=== PATIENT | female | born 1985 | race Caucasian/White ===

== ENCOUNTER 2019-11-24 06:43 | Inpatient (IN) | payer BC ==
[2019-11-24] MEDS ORDERED: Butorphanol Tartrate 1 MG/ML VIAL SLOW IVP PRN (07:31)
[2019-11-24] MEDS ORDERED: hydrALAZINE 20 MG/ML VIAL SLOW IVP PRN ×2 (07:31→12:39)
[2019-11-24] MEDS ORDERED: Acetaminophen 500 MG TAB PO PRN (07:31)
[2019-11-24] MEDS ORDERED: Misoprostol 200 MCG TAB PR PRN (07:31)
[2019-11-24] MEDS ORDERED: Ondansetron PF 4 MG/2 ML Vial IVP PRN ×2 (07:31→11:56)
[2019-11-24] MEDS ORDERED: NS w/ Oxytocin 10 units 500 ML IV SCH (07:31)
[2019-11-24] MEDS ORDERED: Ibuprofen 800 MG TAB PO PRN (07:31)
[2019-11-24] MEDS ORDERED: Promethazine HCl 25 MG/ML VIAL IM PRN ×2 (07:31→11:56)
[2019-11-24] MEDS ORDERED: Lidocaine 1% (PF) 30 ML VIAL SC PRN (07:31)
[2019-11-24] MEDS ORDERED: NS / Oxytocin 40 units/1000ml 1,000 ML IV PRN (07:31)
[2019-11-24] MEDS ORDERED: Carboprost 250 MCG/ML AMP IM PRN (07:31)
[2019-11-24 07:42] VITALS: BMI 34.3
[2019-11-24 07:58] LABS: Hemoglobin 13.3 g/dL (12.0-16.0); Mean Corpuscular HGB CONC 34.9 g/dL (32.0-36.0); Mean Corpuscular Hemoglobin 32.5 pg (27.0-31.0); Mean Corpuscular Volume 93.2 fL (78.0-98.0); Mean Platelet Volume 7.7 fL (7.4-10.4); Platelet Count 192 thou/uL (130-400); RBC Distribution Width 11.6 % (11.5-14.5); Red Blood Cell (RBC) Count 4.11 mill/uL (4.20-5.40); White Blood Cell (WBC) Count 7.7 thou/uL (4.8-10.8)
[2019-11-24 08:37] LABS: Syphilis Antibody Nonreactive (Nonreactive); Syphilis Antibody Index 0.05 S/CO (<1.00 Non-Reactive)
[2019-11-24 08:38] LABS: HBSAg Index 0.23 S/CO (0-0.99); Hep B Surf Ag Non-Reactive S/CO (NonReactive)
--- NOTE | 2019-11-24 09:54 | PDOC.EVN ---
Event Note - Event Note Event Note: [facility] Asked to perform AROM. EGA: 40 weeks 4 days SAB2 Asked to perform AROM per Dr Dior. last exam was -/-2 at 0800, pitcoin in use AROM reviewed with patient. IUPC placed
--- NOTE | 2019-11-24 10:09 | PDOC.EVN ---
Event Note - Event Note Event Note: Thin mec noted at AROM. I reviewed this with the pateint and partner. Likely a function of EGA (Late term). Discussed protocol of having NICU in room at . Sending Placenta and gas may be considered by Dr Dior at delivery
[2019-11-24] MEDS ORDERED: Fentanyl 4 mcg/Bup 0.1% Cadd 100 ML ONE (10:21)
[2019-11-24] MEDS ORDERED: Fentanyl 100 MCG/2 ML VIAL ONE (11:36)
[2019-11-24] MEDS ORDERED: NS / Oxytocin 40 units/1000ml 1,000 ML ONE ×2 (11:48→14:43)
[2019-11-24] MEDS ORDERED: Lidocaine 1% (PF) 30 ML VIAL ONE (11:48)
[2019-11-24] MEDS ORDERED: diphenhydrAMINE 50 MG/ML VIAL IVP PRN (11:56)
[2019-11-24] MEDS ORDERED: Lactated Ringer's 500 ML IV PRN (11:56)
[2019-11-24] MEDS ORDERED: ePHEDrine/0.9% NaCl/PF SYRINGE 50 mg/10 ml SLOW IVP PRN (11:56)
[2019-11-24] MEDS ORDERED: Acetaminophen 325 MG TAB PO PRN (11:56)
[2019-11-24] MEDS ORDERED: Naloxone HCl 0.4 mg/ml Vial IVP PRN ×2 (11:56)
[2019-11-24] MEDS ORDERED: Fentanyl 4 mcg/Bupivacaine 0.1% Cassette 100 ML EPIDURAL SCH (12:00)
[2019-11-24] MEDS ORDERED: Communication Order-Pharmacy FS PRN (12:00)
--- NOTE | 2019-11-24 12:37 | PDOC.OPDEL ---
OB Operative/Delivery Note Delivery Dr/Surgeon: Ovi Pre-Delivery Diagnosis: elective induction Procedure/Post Delivery Dx: spontaneous vaginal delivery Weeks gestation: 40 Anesthesia: epidural - Findings A Sex: female - 1 min: 8 - 5 min: 9 - Additional Findings/Plan Placenta delivered: spontaneous Repaired Obstetrical Laceration: 2nd degree Estimated blood loss: 110 ml qbl Post delivery plan: routine recovery
--- NOTE | 2019-11-24 12:38 | PDOC.LDHP ---
Labor and Delivery H&P Chief complaint: scheduled induction Current gestational age (weeks): 40 Dating criteria: last menstrual period Grav: 4 Para: 1 Current complications: none Abnormal US findings: No Current medications: pre-indiana vitamins Previous surgical history: none Allergies/Adverse Reactions: Allergies Allergy/AdvReac Type Severity Reaction Status Date / Time No Known Allergies Allergy Unverified 11/24/19 07:33 Social history: none - Vaginal Exam cm dilated: 4 Effacement: 50% Station: -1 - OB Labs Blood type: O RH: positive Antibody Screen: negative HIV: negative RPR: negative HEPSAg: negative 1 hour GCT: positive 3 hour GTT: negative GBS: negative - Assessment L&D Assessment: elective induction at term - Plan Plan: admit to L&D, labor augmentation if indicated, anesthesia consult for pain management
[2019-11-24] MEDS ORDERED: Lanolin Ointment 7 GM TUBE TOP PRN (12:39)
[2019-11-24] MEDS ORDERED: Preparation H Ointment 28 GM TUBE PR PRN (12:39)
[2019-11-24] MEDS ORDERED: diphenhydrAMINE 25 MG CAP PO PRN (12:39)
[2019-11-24] MEDS ORDERED: Bisacodyl 10 MG SUPP PR PRN (12:39)
[2019-11-24] MEDS ORDERED: Benzocaine-Menthol 82.5 ML CAN TOP PRN (12:39)
[2019-11-24] MEDS ORDERED: Milk Of Magnesia 30 ML UDCUP PO PRN (12:39)
[2019-11-24] MEDS ORDERED: NS / Oxytocin 40 units/1000ml 1,000 ML IV SCH (12:45)
[2019-11-24] MEDS ORDERED: Bupivacaine/Epinephrine 0.25% 30 ML VIAL ONE (13:57)
[2019-11-24] MEDS ORDERED: Misoprostol 200 MCG TAB ONE ×2 (14:15→14:16)
[2019-11-24] MEDS ORDERED: Carboprost 250 MCG/ML AMP ONE (14:32)
[2019-11-24] MEDS ORDERED: Diphenoxylate HCl/Atropine Tablet PO SCH (14:45)
[2019-11-24] MEDS: Ibuprofen 800 MG TAB PO SCH ×2 (17:38→22:44)
[2019-11-24] MEDS: Ferrous Sulfate 325 MG TAB PO SCH (17:39)
[2019-11-24] MEDS: traMADol HCl 50 MG TAB PO PRN (17:40)
[2019-11-24] MEDS: Docusate Calcium (SURFAK) 240 MG CAP PO SCH (22:44)
[2019-11-25] MEDS: traMADol HCl 50 MG TAB PO PRN (04:17)
[2019-11-25] MEDS: Ibuprofen 800 MG TAB PO SCH ×2 (04:17→13:53)
--- NOTE | 2019-11-25 07:46 | PDOC.PP ---
Post Progress Note Post Day #: 1 PO intake tolerated: yes Flatus: yes Ambulation: yes Vital Signs (12 hours) Temp Pulse Resp BP BP Pulse Ox 11/25/19 04:06 98.3 F 78 17 121/72 11/24/19 21:15 98.0 F 82 17 124/65 11/24/19 20:00 98.0 F 84 18 151/104 H 100 Weight Weight 200 lb Result Diagrams: 11/24/19 07:50 Additional Labs: Post Labs Blood Type O POSITIVE 11/24/19 07:59 Hep Bs Antigen Non-Reactive S/CO (NonReactive) 11/24/19 07:50 - Assessment/Plan Post day 1...Doing well...D/c home today ..Has f/u in 6 weeks.
[2019-11-25] MEDS: Ferrous Sulfate 325 MG TAB PO SCH ×2 (08:29→14:14)
[2019-11-25] MEDS: Docusate Calcium (SURFAK) 240 MG CAP PO SCH (08:34)
[2019-11-25] MEDS ORDERED: Prenatal Vitamin 1 TAB PO SCH (09:00)
[2019-11-25 11:52] VITALS: BP 125/78; TEMP 97.8
[2019-11-25] MEDS ORDERED: Adacel (T-DAP) 0.5 ML SYRINGE IM ONE (12:39)
== END 2019-11-25 17:50 | disposition home or self-care (01) | DRG 807 ==
LOC: L&D/OP 06:43 → L&D 06:44 → 3SW 16:47
PROVIDERS: ADMIT Obstetrics & Gynecology; ATTEND Obstetrics & Gynecology
PROC: 10E0XZZ Delivery of Products of Conception, External Approach (ICD-10-PCS; principal; 2019-11-24)
PROC: 0KQM0ZZ Repair Perineum Muscle, Open Approach (ICD-10-PCS; 2019-11-24)
PROC: 10907ZC Drainage of Amniotic Fluid, Therapeutic from Products of Conception, Via Natural or Artificial Opening (ICD-10-PCS; 2019-11-24)
DX: O70.1 Second degree perineal laceration during delivery (principal); Z37.0 Single live birth; Z3A.40 40 weeks gestation of pregnancy
CPT/HCPCS: 36415; 51702; 85027; 86780; 86850; 86900; 86901; 87340; J2001; J2590; J3010; J3490